=== PATIENT | female | born 1940 | race Caucasian/White ===

== ENCOUNTER → 2017-02-16 | Outpatient (CLI) | payer MEDICARE, BC ==
[~2017-02-16] MED LIST: ACIDOPHILUS1 CAP PO; ACIDOPHILUS1 EACH PO; ALBUTEROL 0.5ML INH; ALBUTEROL0.83 MG/ML IH; AMITRIPTYLINE H25 MG PO; ASPIRIN81 M1 PO; ASPIRIN81 M2 PO; FLEXERIL10 M1 PO; FLEXERIL10 MG PO; GABAPENTIN300 M2 PO; GABAPENTIN300 MG PO; KEFLEX500 M1 PO; LIPITOR20 MG PO; LISINOPRIL PO; LISINOPRIL20 MG PO; LOTRIMIN 1% CR30 GM TOP; METRONIDAZOLE 045 GM TOP; MULTI VITAMIN1 EACH PO; MULTIPLE VITAMI1 T11 PO; NAPROXEN PO; OCUVITE SOFTGEL1 CA1 PO; OCUVITE TABLET1 TA1 PO; PERCOCET5/325; TAMOXIFEN CITRA20 MG PO; TRAMADOL HCL50 M1 PO; TRAMADOL HCL50 M2 PO; VIACTIV SOFT C1 EACH PO; VITAMIN D-32000 UNI1 PO; VITAMIN D31000 UNIT PO; VITAMIN D400 UNI2 PO; ZANTAC150 MG PO
--- NOTE | ~2017-02-16 | MY6 ---
[facility] A Service of [facility] RADIOLOGY TEXT RESULTS PATIENT: DINA PINEDA LOCATION: [facility] : 38 UNIT #: [id number] AGE: [address]: Patricia Lopez MD SEX: F ORDER DR: [id number] [facility] [address] [place], [place] [address] [id number] O MR#: [id number] Acc #: [id number] NAME: DINA PINEDA. : 1940 SEX: F STUDY DATE/TIME: 02/16/2017 11:02 UNIT: [facility] ROOM: STUDY DESCRIPTION: MY Mammogram Dx Dig Tomer Attending Physician: Patricia Lopez M.D. Ordering Physician: Patricia Lopez M.D. Primary Care Physician: Patricia Lopez M.D. MEDICAL IMAGING REPORT This report is preliminary unless electronic signature is present EXAM Diagnostic mammogram 02/16/2017 INDICATION 76-year-old with history of right side breast cancer status post lumpectomy. No current complaints. FINDINGS Digital CC, MLO, and ML views of both breasts were obtained in addition to a right exaggerated CC view. Study is reviewed with an FDA-approved CAD device. Comparison is made with 10/02/2015, 09/29/2014, 08/26/2013. Breast parenchyma shows scattered fibroglandular densities. No new masses or suspicious microcalcifications are seen. Benign calcifications in the left breast are stable. Lumpectomy bed in the right breast is stable. Findings were discussed with the patient at the time of her examination today. IMPRESSION Benign mammogram. Followup in 1 year is recommended. Patients over the age of 40 are entered into a reminder system with target due date for the next mammogram. A result letter will also be sent to the patient. BIRADS: 2 Benign finding Dictated by... Floyd Uriostegui Jr., M.D. THIS IS AN ELECTRONICALLY VERIFIED REPORT [facility] A Service of [facility] RADIOLOGY TEXT RESULTS PATIENT: DINA PINEDA LOCATION: [facility] : 39 UNIT #: [id number] AGE: [address]: Patricia Lopez MD SEX: F ORDER DR: Floyd Uriostegui Jr., M.D. at 02/16/2017 2:49 PM YOSEF/cindy TD: 02/16/2017 13:14 JOB #: [id number] MEDICAL IMAGING REPORT Page 1 of 1 COPY
== END | disposition home or self-care (01) ==
LOC: CMAM 10:29
DX: C50.911 Malignant neoplasm of unspecified site of right female breast (principal)
CPT/HCPCS: G0204

== ENCOUNTER → 2017-02-27 | Outpatient (CLI) | payer MEDICARE, BC ==
--- NOTE | ~2017-02-27 | CR211 ---
[facility] A Service of [facility] & [facility] RADIOLOGY TEXT RESULTS PATIENT: DINA PINEDA LOCATION: [facility] : 39 UNIT #: [id number] AGE: [address]: Patricia Lopez MD SEX: F ORDER DR: [id number] [facility] [address] [place], [place] [address] [id number] O MR#: [id number] Acc #: [id number] NAME: DINA PINEDA. : 1940 SEX: F STUDY DATE/TIME: 02/27/2017 11:58 UNIT: [facility] ROOM: STUDY DESCRIPTION: CR Ribs Uni 2 View W PA Ch Rt Attending Physician: Patricia Lopez M.D. Referring Physician: Patricia Lopez M.D. Ordering Physician: Patricia Lopez M.D. Primary Care Physician: Patricia Lopez M.D. MEDICAL IMAGING REPORT This report is preliminary unless electronic signature is present EXAM PA chest with right ribs series, 02/27/2017 HISTORY 76-year-old female with right-sided chest pain for 10 days status post fall. COMPARISON Chest 11/22/2012 FINDINGS Frontal chest with 3 views of the right-sided ribs. 4 total images. There are mildly displaced fractures of the lateral right eighth and ninth ribs. There is also a minimally-displaced fracture of the posterior right ninth rib. No other acute bony abnormalities. The lungs are clear. No pneumothorax. Heart size and mediastinum within normal limits. IMPRESSION 1. Mildly displaced fractures of the lateral right eighth and ninth ribs as well as a mildly displaced fracture of the posterior right ninth rib. 2. No pneumothorax. Dictated by... Roland Gardner M.D. THIS IS AN ELECTRONICALLY VERIFIED REPORT Roland Gardner M.D. at 03/01/2017 4:10 PM LIU/echo TD: 03/01/2017 00:01 JOB #: [id number] [facility] A Service of [facility] & [facility] RADIOLOGY TEXT RESULTS PATIENT: DINA PINEDA LOCATION: [facility] #: [id number] : 38 UNIT #: [id number] AGE: [address]: Patricia Lopez MD SEX: F ORDER DR: MEDICAL IMAGING REPORT Page 1 of 1 COPY
== END | disposition home or self-care (01) ==
LOC: CRAD 11:24
DX: R07.89 Other chest pain (principal); J20.9 Acute bronchitis, unspecified; S22.41XA Multiple fractures of ribs, right side, initial encounter for closed fracture
CPT/HCPCS: 71101